=== PATIENT | female | born 1965 | race American Indian/Alaskan Native ===

== ENCOUNTER 2021-06-27 10:23 | Observation (INO) | payer BC, OTHER ==
[2021-06-27] MEDS ORDERED: SODIUM CHLORIDE 0.9% 1000 ML 1,000 ML IV ONE (12:47)
[2021-06-27] MEDS ORDERED: HYDROmorphone 1 MG/1 ML INJ IV ONE ×2 (12:47→15:00)
[2021-06-27] MEDS ORDERED: METOCLOPRAMIDE 10 MG/2 ML INJ IV ONE (12:47)
--- NOTE | 2021-06-27 12:50 | Emergency Department Report ---
ED General Adult HPI - General Chief complaint: Nausea/Vomiting/Diarrhea Stated complaint: DIARRHEA/VOMITING/LIGHT HEAD Time Seen by Provider: 06/27/21 11:28 Source: patient Mode of arrival: Ambulatory Limitations: No Limitations - History of Present Illness Initial comments: The patient is a pleasant 55-year-old female with a history of diverticulitis. Her primary care doctor is Dr. Hernández. Her chain pegger is Dr. Torres. She reports having had a colonoscopy last year which she believes showed diverticulosis. She presents to the ER today w ith complaints of lower abdominal cramping, nausea, vomiting and diarrhea. She thinks this feels similar to prior episodes of diverticulitis. Her symptoms started yesterday. Abdominal pain increases with palpation, range of motion and position. It decreases with rest. Denies urinary symptoms. Denies additional injuries and complaints. No recent antibiotic use. -: Gradual, hour(s), days(s) Location: abdomen Quality: other Consistency: other Improves with: other Worsens with: other - Related Data Previous Rx's Medication Instructions Recorded Last Taken Type Pramoxine 1% [Proctofoam] 1 applicatio TP 5XD PRN 3 Days 07/18/13 Unknown Rx foam Allergies Allergy/AdvReac Type Severity Reaction Status Date / Time acidic foods Allergy Rash Uncoded 07/18/13 16:21 ED Review of Systems ROS: Stated complaint: DIARRHEA/VOMITING/LIGHT HEAD Other details as noted in HPI Comment: All other systems reviewed and negative Gastrointestinal: abdominal pain, nausea, vomiting, diarrhea ED Past Medical Hx - Past Medical History Additional medical history: mild cervical dysplasia - Surgical History Hx Breast Surgery: Yes - Social History Smoking Status: Never Smoker Substance Use Type: Alcohol - Medications Home Medications: Home Medications Medication Instructions Recorded Confirmed Last Taken Type Pramoxine 1% [Proctofoam] 1 applicatio TP 5XD PRN 3 Days 07/18/13 Unknown Rx foam ED Physical Exam - General Limitations: No Limitations General appearance: alert, in no apparent distress - Head Head exam: Present: atraumatic, normocephalic - Eye Eye exam: Present: normal appearance, EOMI. Absent: nystagmus - ENT ENT exam: Present: normal exam, normal orophraynx, mucous membranes moist, normal external ear exam - Neck Neck exam: Present: normal inspection, full ROM. Absent: tenderness, meningismus - Respiratory Respiratory exam: Present: normal lung sounds bilaterally. Absent: respiratory distress, wheezes, rales, rhonchi, stridor, decreased breath sounds - Cardiovascular Cardiovascular Exam: Present: regular rate, normal rhythm, normal heart sounds. Absent: bradycardia, tachycardia, irregular rhythm, systolic murmur, diastolic murmur, rubs, gallop - GI/Abdominal GI/Abdominal exam: Present: soft, tenderness, normal bowel sounds. Absent: distended, guarding, rebound, rigid, pulsatile mass - Extremities Exam Extremities exam: Present: normal inspection, full ROM, other (2+ pulses noted in the bilateral upper and lower extremities. There is no palpable cord. negative Homans sign. Muscular compartments are soft. The pelvis is stable.). Absent: pedal edema, calf tenderness - Back Exam Back exam: Present: normal inspection, full ROM. Absent: tenderness, CVA tender ness (R), CVA tenderness (L), paraspinal tenderness, vertebral tenderness - Neurological Exam Neurological exam: Present: alert, oriented X3, normal gait, other (No facial droop. Tongue midline. Extraocular movements intact bilaterally. Facial sensation intact to light touch in V1, V2, V3 distribution bilaterally. 5 and a 5 strength in 4 extremities. Sensation intact to light touch in 4 extremities.). Absent: motor sensory deficit - Psychiatric Psychiatric exam: Present: normal affect, normal mood - Skin Skin exam: Present: warm, dry, intact, normal color. Absent: rash ED Course Vital Signs 06/27/21 11:07 Temperature 98.3 F Pulse Rate 104 H Respiratory 16 Rate Blood Pressure 145/72 [Left] O2 Sat by Pulse 100 Oximetry - Reevaluation(s) Reevaluation #1: 06/27/21 17:58 Differential diagnosis, include but not limited to: Colitis, diverticulitis, obstruction, urinary tract infection, gastroenteritis Assessment and plan: 55-year-old female, who is afebrile, with reassuring vital signs, with abdominal pain and tenderness, known history of diverticulitis, pr esenting to the ER with a complaint of nausea, vomiting, has required multiple rounds of antiemetics and analgesics. CT scan of the abdomen pelvis is negative for significant findings, also contacted the interpreting radiologist, and we discussed the CT scan of the patient's case in real-time. Laboratory studies are unremarkable, urinalysis is pending. Patient quite symptomatic, still nauseous at this time, and appears uncomfortable. Patient to be medicated with third round of Zofran, after initial Reglan and Zofran, nursing team to administer oral challenge. Final reassessment after oral challenge. If patient still vomiting/uncomfortable after oral challenge, would consider admission for supportive care. Discussed this with the patient and her family member at the bedside with the patient's permission. 06/27/21 18:08 Patient is still quite nauseous. Urinalysis demonstrates bacteriuria, and ketones. Have recommended admission for intractable nausea/vomiting, with dehydration, and presumed symptomatic bacteriuria. Discussed this with the patient and family. They are agreeable to this plan of care. Endorsed to the hospital physician, Dr. Marco Antonio HAYES Medical Decision Making - Lab Data Result diagrams: 06/27/21 13:11 06/27/21 13:11 Vital Signs 06/27/21 11:07 Temperature 98.3 F Pulse Rate 104 H Respiratory 16 Rate Blood Pressure 145/72 [Left] O2 Sat by Pulse 100 Oximetry - EKG Data -: EKG Interpreted by Or EKG shows normal: sinus rhythm Rate: normal - EKG Data 06/27/21 13:47 The EKG is interpreted 12: 58 Sinus rhythm, 93 bpm. Normal axis, normal intervals, normal P wave axis, borderline left ventricular hypertrophy. Abnormal EKG. This is not a STEMI. - Radiology Data Radiology results: pending, report reviewed, image reviewed CT angio abdomen pelvis INDICATION / CLINICAL INFORMATION: Acute abdominal pain, nausea and. TECHNIQUE: CTA of the abdomen and pelvis. MIPS were performed . All CT scans at this location are performed using CT dose reduction for ALARA by means of automated exposure control. COMPARISON: None available. FINDINGS: VASCULATURE: No significant atherosclerosis. Aorta is normal in caliber. No dissection. No aneurysm. The celiac, superior mesenteric, inferior mesenteric, and bilateral renal arteries are all patent without occlusion or hemodynamically significant stenosis. The common, external, and internal iliac arteries appear within normal limits. Visualized femoral arteries appear within normal limits. ABDOMEN and PELVIS: Lung bases: No significant abnormality. Liver: No significant abnormality. Biliary: No significant abnormality. Spleen: No significant abnormality. Unenlarged. Pancreas: No significant abnormality. Adrenals: There is calcific location seen along the left adrenal gland. No significant abnormality. Kidneys: No significant abnormality. Lymphatics: No lymphadenopathy. Bowel/Peritoneum: No extravasation of contrast into the bowel. No significant abnormality. Normal appendix. Pelvis: No significant abnormality. Osseous Structures: No aggressive osseous lesion. Additional Findings: None IMPRESSION: 1. The vasculature are widely patent. No significant abnormality of the abdomen or pelvis. Signer Name: Guy Zelaya MD Signed: 06/27/2021 3:39 PM Workstation Name: [id number] Critical care attestation.: If time is entered above; I have spent that time in minutes in the direct care of this critically ill patient, excluding procedure time. ED Disposition Clinical Impression: Acute abdominal pain, Bacteriuria, Intractable nausea and vomiting, Dehydration Disposition: ADMITTED INPATIENT Is pt being admited?: Yes Does the pt Need Aspirin: No Condition: Good Referrals: WILBER HERNÁNDEZ [Other] - 3-5 Days
[2021-06-27 13:52] LABS: Hematocrit 43.4 % (30.3-42.9); Hemoglobin 14.6 gm/dl (10.1-14.3); Mean Corpuscular HGB Conc 34 % (30-34); Mean Corpuscular Volume 92 fl (79-97); Platelet Count 215 K/mm3 (140-440); Red Cell Distribution Width 13.8 % (13.2-15.2)
[2021-06-27 14:02] LABS: INR 0.94 (0.87-1.13)
[2021-06-27 14:14] LABS: Alanine Aminotransferase 25 units/L (7-56); Albumin 4.9 g/dL (3.9-5); Blood Urea Nitrogen 13 mg/dL (7-17); Calcium 9.1 mg/dL (8.4-10.2); Hemolysis Index 82
[2021-06-27 14:19] LABS: BUN/Creatinine Ratio 26; Bilirubin,Direct < 0.2 mg/dL (0-0.2)
[2021-06-27 14:27] LABS: Eosinophils % (Manual) 0 % (0.0-4.3); Total Cells Counted 100
[2021-06-27 14:28] LABS: Large Platelets Few; Platelet Estimate Consistent w Auto; RBC Morphology Normal
[2021-06-27] MEDS ORDERED: ONDANSETRON 4 MG/2 ML INJ IV ONE ×2 (15:00→17:26)
--- NOTE | 2021-06-27 16:43 | Cat Scan Report ---
CT angio abdomen pelvis INDICATION / CLINICAL INFORMATION: Acute abdominal pain, nausea and. TECHNIQUE: CTA of the abdomen and pelvis. MIPS were performed. All CT scans at this location are performed using CT dose reduction for ALARA by means of automated exposure control. COMPARISON: None available. FINDINGS: VASCULATURE: No significant atherosclerosis. Aorta is normal in caliber. No dissection. No aneurysm. The celiac, superior mesenteric, inferior mesenteric, and bilateral renal arteries are all patent wit hout occlusion or hemodynamically significant stenosis. The common, external, and internal iliac arteries appear within normal limits. Visualized femoral art eries appear within normal limits. ABDOMEN and PELVIS: Lung bases: No significant abnormality. Liver: No significant abnormality. Biliary: No significant abnormality. Spleen: No significant abnormality. Unenlarged. Pancreas: No significant abnormality. Adrenals: There is calcific location seen along the left adrenal gland. No significant abnormality. Kidneys: No significant abnormality. Lymphatics: No lymphadenopathy. Bowel/Peritoneum: No extravasation of contrast into the bowel. No significant abnormality. Normal ap pendix. Pelvis: No significant abnormality. Osseous Structures: No aggressive osseous lesion. Additional Findings: None IMPRESSION: 1. The vasculature are widely patent. No significant abnormality of the abdomen or pelvis. Signer Name: Guy Zelaya MD Signed: 06/27/2021 4:39 PM Workstation Name: [id number]
[2021-06-27 17:57] LABS: Bacteria,Urine 2+ /HPF (Negative); Bilirubin,Urine NEG (Negative); Blood,Urine NEG (Negative); Color,Urine Yellow (Yellow); Mucus,Urine 2+ /HPF; Protein,Urine <15 mg/dL mg/dL (Negative); Urobilinogen,Urine < 2.0 mg/dL (<2.0)
--- NOTE | 2021-06-27 18:06 | History and Physical Report ---
History of Present Illness Chief complaint: My stomach is killing me History of present illness: 55 YO Female with Cervical Dysplasia, Diverticulitis presents to ED for evaluation. Patient reports "my stomach is killed me". Patient states that she has experienced severe abdominal pain over the past 1 day with persistent and worsening symptoms over the same timeframe. Patient states that her pain is crampy in nature, has become constant, isolated to the lower abdomen, associated with nausea, associate with multiple episodes of vomiting, and associated with 5 loose stools in the past 24 hours. Patient states that pain is worsened with motion and relieved with nonmovement. Patient is unable to tolerate oral intake. Patient acknowledges no oral intake over the past 24 hours. Patient transported to [facility] via private vehicle for further care and evaluation of the aforementioned symptoms. The patient was seen and evaluated in the emergency department. All lab and imaging studies reviewed. Patient found to have intestinal angina, complicated by volume depletion, and inability to tolerate oral intake. Patient pain symptoms not relieved with conservative management. Patient admitted to medical floor and treated with bowel rest, IV fluid resuscitation therapy and pain control. Patient denies fever, chills, chest pain, palpitation, productive cough, skin rash, recent contact, ingestion of food/water from new or different sources, or nondisplaced COVID-19. No prior admission for review. No medication listed at time of admission for reconciliation. Advanced care planning conducted in ED. Past History Past Medical History: other (See HPI) Past Surgical History: Other (Breast surgery) Social history: . denies: smoking, alcohol abuse, prescription drug abuse Family history: hypertension Medications and Allergies Allergies Allergy/AdvReac Type Severity Reaction Status Date / Time acidic foods Allergy Rash Uncoded 07/18/13 16:21 Home Medications Medication Instructions Recorded Confirmed Last Taken Type Pramoxine 1% [Proctofoam] 1 applicatio TP 5XD PRN 3 Days 07/18/13 Unknown Rx foam Review of Systems Constitutional: no weight loss, no weight gain, no fever, no chills Ears, nose, mouth and throat: no ear pain, no ear discharge, no decreased hearing, no nasal congestion Breasts: no change in shape, no mass Cardiovascular: no orthopnea, no palpitations, no edema, no syncope Respiratory: no cough, no excessive sputum, no shortness of breath Gastrointestinal: abdominal pain, nausea, vomiting, loss of appetite, no hematemesis, no BRBPR, no melena, no hematochezia Genitourinary Female: no flank pain, no dysuria, no urinary frequency, no urgency, no stress incontinence Rectal: no pain, no incontinence, no bleeding Musculoskeletal: no neck stiffness, no neck pain, no shooting arm pain, no low back pain, no shooting leg pain Integumentary: no rash, no pruritis, no sores, no wounds, no jaundice Neurological: no head injury, no paralysis, no weakness, no numbness, no t ingling, no syncope, no ataxia Psychiatric: anxiety, no memory loss, no hypersomnia, no suicidal ideation Endocrine: no cold intolerance, no polydipsia, no nocturia, no weight change Allergic/Immunologic: no urticaria, no allergic rhinitis, no wheezing Exam - Constitutional Vitals: Temp Pulse Resp BP Pulse Ox 98.3 F 104 H 16 145/72 100 06/27/21 11:07 06/27/21 11:07 06/27/21 11:07 06/27/21 11:07 06/27/21 11:07 General appearance: Present: mild distress - EENT Eyes: Present: PERRL ENT: hearing intact, clear oral mucosa - Neck Neck: Present: supple, normal ROM - Respiratory Respiratory effort: normal Respiratory: bilateral: CTA - Cardiovascular Heart Sounds: Present: S1 & S2. Absent: rub, click - Extremities Extremities: pulses symmetrical, No edema Peripheral Pulses: within normal limits - Abdominal General gastrointestinal: Present: soft, tender, non-distended, normal bowel sounds. Absent: mass, hernia Localized gastrointestinal: tender: RUQ, LUQ Female genitourinary: Present: normal - Integumentary Integumentary: Present: clear, warm, dry - Musculoskeletal Musculoskeletal: gait normal, strength equal bilaterally - Psychiatric Psychiatric: appropriate mood/affect, intact judgment & insight - Neurologic Neurologic: CNII-XII intact, moves all extremities Results - Labs CBC & Chem 7: 06/27/21 13:11 06/27/21 13:11 Labs: Abnormal lab results 06/27/21 06/27/21 Range/Units 13:11 13:11 Hgb 14.6 H (10.1-14.3) gm/dl Hct 43.4 H (30.3-42.9) % Seg Neuts % (Manual) 90.0 H (40.0-70.0) % Lymphocytes % (Manual) 6.0 L (13.4-35.0) % Basophils % (Manual) 2.0 H (0.0-1.8) % Lymphocytes # (Manual) 0.4 L (1.2-5.4) K/mm3 Creatinine 0.5 L (0.6-1.2) mg/dL Glucose 115 H (65-100) mg/dL Assessment and Plan - Patient Problems (1) Intestinal angina Current Visit: Yes Status: Acute Plan to address problem: Bowel rest, IV fluid resuscitation therapy, CT scan abdomen and pelvis, abdominal x-ray in a.m., serial abdominal exam, lactic acid level, IV fluid resuscitation therapy. Pain control, supportive care. (2) Irritable bowel syndrome Current Visit: Yes Status: Acute Qualifiers: Irritable bowel syndrome type: with both diarrhea and constipation Qualified Code(s): K58.2 - Mixed irritable bowel syndrome Plan to address problem: Bowel rest, IV fluid resuscitation therapy, supportive care, outpatient GI follow-up. Continue medical management. (3) Volume depletion Current Visit: Yes Status: Acute Plan to address problem: IV fluid resuscitation therapy, BMP, repeat BMP in a.m. (4) Intractable nausea and vomiting Current Visit: Yes Status: Acute Plan to address problem: Antiemetic therapy, supportive care. Advance diet as tolerated. (5) DVT prophylaxis Current Visit: Yes Status: Acute Plan to address problem: SCDs bilateral lower extremities while in bed, patient is ambulatory (6) Advance care planning Current Visit: Yes Status: Acute Plan to address problem: Disease education conducted, care plan discussed, diagnoses discussed, prognosis discussed, patient is full code. Patient knowledges understanding and agreement with care plan, +30 minutes.
[2021-06-27] MEDS ORDERED: cefTRIAXone/NS 1 GM/50 ML 1 GM/50 ML BAG IV ONE ×2 (18:08→21:06)
[2021-06-27] MEDS ORDERED: MORPHINE 2 MG/1 ML INJ IV PRN (18:43)
[2021-06-27] MEDS ORDERED: ALBUTEROL 2.5 MG/3 ML NEBU IH PRN (18:43)
[2021-06-27] MEDS ORDERED: ACETAMINOPHEN 325 MG TAB PO PRN (18:43)
[2021-06-27] MEDS ORDERED: HYDROmorphone 1 MG/1 ML INJ IV PRN (18:43)
[2021-06-27] MEDS ORDERED: SODIUM CHLORIDE 0.9% 1000 ML 1,000 ML IV SCH (19:00)
[2021-06-27] MEDS ORDERED: LORazepam 2 MG/ML VIAL IV PRN (19:53)
[2021-06-27] MEDS ORDERED: LORazepam 2 MG/ML VIAL IV ONE (21:00)
[2021-06-27] MEDS: ONDANSETRON 4 MG/2 ML INJ IV PRN (22:55)
[2021-06-28] MEDS: ONDANSETRON 4 MG/2 ML INJ IV PRN (05:19)
--- NOTE | 2021-06-28 10:05 | XRay Report ---
. ABDOMEN 2 VIEW(S) INDICATION / CLINICAL INFORMATION: abdominal pain. COMPARISON: CTA one day prior FINDINGS: TUBES / LINES: None. BOWEL GAS PATTERN: No significant abnormality. FREE AIR / EXTRALUMINAL GAS: None seen. ADDITIONAL FINDINGS: No significant additional findings. IMPRESSION: 1. No significant abnormality. Signer Name: Jose Milner MD Signed: 06/28/2021 10:00 AM Workstation Name: [id number]
[2021-06-28 13:15] VITALS: BP 119/71
--- NOTE | 2021-06-28 13:27 | Discharge Summary ---
Providers - Providers Date of Admission: 06/27/21 18:43 Attending physician: CHRISTIAN BEY MD Hospitalization Condition: Good Disposition: 30 STILL A PATIENT Exam - Constitutional Vitals: Temp Pulse Resp BP Pulse Ox 98.2 F 81 18 119/71 100 06/28/21 11:22 06/28/21 11:22 06/28/21 11:22 06/28/21 11:22 06/28/21 11:22 Plan Care Plan Goals: Please follow-up with your primary care doctor at discharge. If you experience fever, worsening abdominal pain, nausea and vomiting please return to the ER. Follow up with: WILBER HERNÁNDEZ [Other] - 3-5 Days Prescriptions: Ketorolac [Toradol] 10 mg PO Q6H PRN 3 Days #12 tab PRN Reason: Pain Ondansetron [Zofran ODT TAB] 4 mg PO Q8HR PRN 5 Days #15 tab.rapdis PRN Reason: Nausea
--- NOTE | 2021-06-30 18:40 | Electrocardiograph Report ---
[facility] Test Date: 2021-06-27 Test Time: 12:58:21 Pat Name: JIGAR CORDERO Department: Room: A387 Gender: F [employer] P[employer]: BELLA : 1965 Requested By: MUNIRA VO Order Number: [id number] Reading MD: Thom Quevedo Measurements Intervals [place] Rate: 93 P: 62 DE: 138 QRS: 39 QRSD: 65 T: 60 QT: 329 QTc: 409 Interpretive Statements Sinus rhythm NSST'S No previous ECG available for comparison Electronically Signed On 06-30-2021 18:40:22 EDT by Thom Quevedo
== END 2021-06-28 16:49 | disposition home or self-care (01) ==
LOC: ED 10:23 → INTOOBSV 18:43 → 3A 18:43
PROVIDERS: ADMIT Internal Medicine; ATTEND Student in an Organized Health Care Education/Training Program
DX: K55.1 Chronic vascular disorders of intestine (principal); K58.9 Irritable bowel syndrome, unspecified; E86.9 Volume depletion, unspecified; R11.2 Nausea with vomiting, unspecified; R82.71 Bacteriuria; E86.0 Dehydration; R10.9 Unspecified abdominal pain; Z79.899 Other long term (current) drug therapy; Z98.890 Other specified postprocedural states
CPT/HCPCS: 36415; 74019; 74174; 80048; 80076; 81001; 82140; 83690; 85025; 85610; 87086; 93005; 96361; 96374; 96375; 96376; 99285; G0378; J0696; J1170; J2405; J2765; J7030; Q9967; 85007; Q0162